=== PATIENT | male | born 1985 | race Caucasian/White ===

== ENCOUNTER 2020-10-12 08:42 | Emergency (ER) | payer OTHER ==
[~2020-10-12] VITALS: Ht 190.5 cm; Wt 79.5 kg
[2020-10-12] MEDS ORDERED: ALBU0.63 INH (08:57)
--- NOTE | 2020-10-12 08:57 | NUR ---
REPORT TO TOVA PATTERSON TO ASSUME CARE OF PT. DR. STEEN TO BS FOR EVAL.
--- NOTE | 2020-10-12 09:33 | NUR ---
REPORT OF PT FROM TOVA BRIAN AND ASSUMING CARE OF PT AT THIS TIME.
--- NOTE | 2020-10-12 09:47 | NUR ---
PT ASLEEP IN [facility] WITH [facility]E. PT WITH CALL LIGHT WITHIN REACH AT THIS TIME.
--- NOTE | 2020-10-12 10:12 | NUR ---
PT VSS AND UPDATED IN EMR AT THIS TIME.
[2020-10-12 10:13] VITALS: BP 124/74
--- NOTE | 2020-10-12 10:45 | NUR ---
PT BACK FROM CT VIA [facility] AT THIS TIME.
--- NOTE | 2020-10-12 12:20 | NUR ---
PT SWABBED FOR COVID AT THIS TIME. PT COVID SAMPLE WALKED TO LAB. AWAITING DC SUMMARY AT THIS TIME.
--- NOTE | 2020-10-12 12:28 | NUR ---
Patient given discharge instructions and Rx, they have confirmed that they understand the instructions. Patient ambulatory with steady gait.
== END 2020-10-12 12:28 | disposition home or self-care (01) ==
LOC: ED 08:52
DX: S02.2XXA Fracture of nasal bones, initial encounter for closed fracture (principal); S02.622A Fracture of subcondylar process of left mandible, initial encounter for closed fracture; J18.1 Lobar pneumonia, unspecified organism; Z20.822 Contact with and (suspected) exposure to COVID-19; Y08.89XA Assault by other specified means, initial encounter; Y93.89 Activity, other specified; Y92.89 Other specified places as the place of occurrence of the external cause; Y99.8 Other external cause status
CPT/HCPCS: 70486; 71045; 99285; U0003; U0005